=== PATIENT | male | born 1985 ===

== ENCOUNTER 2017-05-19 03:47 | Inpatient (IN) | payer BC, OTHER ==
[~2017-05-19] VITALS: Ht 167.6 cm; Wt 80.0 kg
[2017-05-19] VITALS (14 sets, daily range): BP systolic 127–143; BP diastolic 74–103; PULSE 52–104; RESP 16–21; TEMP 98.5; Ht 167.6 cm; Wt 80.0 kg
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
[2017-05-19] MEDS ORDERED: ASCO500S2 PO (04:53)
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
[2017-05-19] MEDS ORDERED: DIPHTH/TET/ACEL PERTUSS (ADULT) 0.5 ML VIAL IM* ONE (05:00)
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
[2017-05-19] MEDS ORDERED: ONDANSETRON 4 MG INJ IV PRN ×2 (05:30→06:00)
[2017-05-19] MEDS ORDERED: LIDOCAINE 1% (MDV) 20 ML INJ SC ONE (05:30)
[2017-05-19] MEDS ORDERED: ACETAMINOPHEN 325 MG TAB PO PRN (05:30)
[2017-05-19] MEDS: SOD CHLORIDE 0.9% 1,000 ML IV SCH ×4 (05:32→23:51)
--- NOTE | 2017-05-19 05:35 | RADRPT ---
PROCEDURE: Chest. CLINICAL INDICATION: Chest pain. TECHNIQUE: Single frontal view of the chest was obtained. COMPARISON: None. FINDINGS: The cardiac silhouette is within normal limits. The aortic arch is unremarkable. There is no focal consolidation, vascular congestion or pleural effusion. There is no pneumothorax. IMPRESSION: No evidence for active cardiopulmonary disease. .Jos Burns MD, MD Date Time Electronically viewed and signed by .Jos Burns MD, on 05/19/2017 05:35 .T/
[2017-05-19 05:39] LABS: BASOPHIL # 0.1 10^3/ul (0.0-0.1); BASOPHILS % 0.5 % (0.0-2.0); EOSINOPHILS % 0.1 % (0.0-7.0); HEMATOCRIT 48.9 % (42.0-52.0); LYMPHOCYTES # 0.8 10^3/ul (0.8-2.9); LYMPHOCYTES % 3.8 % (15.0-51.0); MEAN CORPUSCULAR HEMOGLOBIN 31.8 pg (29.0-33.0); MEAN CORPUSCULAR HGB CONC 34.8 g/dl (32.0-37.0); MEAN CORPUSCULAR VOLUME 91.6 fl (82.0-101.0); MEAN PLATELET VOLUME 9.8 fl (7.4-10.4); MONOCYTE # 1.4 10^3/ul (0.3-0.9); MONOCYTES % 7.2 % (0.0-11.0); NEUTROPHIL # 17.4 10^3/ul (1.6-7.5); NEUTROPHILS % 87.5 % (39.0-77.0); PLATELET COUNT 352 10^3/UL (140-415); RED BLOOD COUNT 5.34 10^6/ul (4.70-6.10); RED CELL DISTRIBUTION WIDTH 12.2 % (11.5-14.5); WHITE BLOOD COUNT 19.9 10^3/ul (4.8-10.8)
[2017-05-19] MEDS: PANTOPRAZOLE 40 MG INJ IV SCH (05:57)
[2017-05-19 05:58] LABS: CALCIUM 10.3 mg/dl (8.4-10.2); CREATININE 1.11 mg/dl (0.61-1.24); POTASSIUM 4.1 mmol/L (3.5-5.1)
[2017-05-19 06:00] LABS: INR 0.93; PROTIME 12.5 Sec (12.2-14.2)
[2017-05-19] MEDS ORDERED: DOCUSATE SODIUM 100 MG CAP PO PRN (06:00)
[2017-05-19 06:01] LABS: PARTIAL THROMBOPLASTIN TIME 25.9 Sec (25.0-35.0)
[2017-05-19] MEDS: morphine 2 MG INJ IV PRN ×2 (06:44→11:07)
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
[2017-05-19] MEDS: MULTIVITAMINS 10 ML, THIAMINE 100 MG, FOLIC ACID 1 MG in SOD CHLORIDE 0.9% 1,000 ML IVPB SCH (10:00)
--- NOTE | 2017-05-19 12:15 | RADRPT ---
PROCEDURE: CT Brain without contrast. CLINICAL INDICATION: Subarachnoid hemorrhage TECHNIQUE: Routine CT scan of the brain was performed on a high resolution multi detector scanner without intravenous contrast. One or more of the following dose reduction techniques were used: Auto mated exposure control; Adjustment of the mA and/or kV according to patient size; Use of iterative r econstruction technique. CTDI = 44 mGy. DLP = 720 mGy-cm. COMPARISON: CT brain 05/19/2017 FINDINGS: Hemorrhage: Trace right inferior frontal and temporal subarachnoid hemorrhages seen on the previous examination are less well visualized. No evidence of new or increased hemorrhage. Acute ischemic changes: No evidence of acute ischemic changes. Mass effect/Midline shift: None. Parenchymal volume: Within normal limits for age. Ventricular system: Concordant with parenchymal volume. Chronic changes: Parenchymal attenuation is within normal limits. Extracranial soft tissues: Mildly increased soft tissue swelling of the scalp with repair of left pa rietal laceration. Calvarium: No fractures. Paranasal sinuses: Visualized paranasal sinuses are clear. Mastoid air cells: Visualized mastoid air cells are clear. IMPRESSION: Trace right inferior frontal and temporal subarachnoid hemorrhages seen on the previous examination are less well visualized. No evidence of new or increased hemorrhage. RPTAT: AADD .Jose Dupree MD, MD Date Time Electronically viewed and signed by .Jose Dupree MD, MD on 05/19/2017 12:14 .B/
[2017-05-19 17:33] LABS: CK-MB 9.94 ng/ml (0.0-2.4); CREATINE KINASE 2310 IU/L (23-200); TROPONIN-I < 0.012 ng/ml (0.00-0.12)
[2017-05-20] MEDS: CEFTRIAXONE 1 GM/50 ML (PMX) 50 ML IVPB SCH ×2 (01:06→23:06)
[2017-05-20] MEDS: ACETAMINOPHEN 650MG/20.3ML CUP PO PRN ×2 (02:10→16:11)
[2017-05-20 04:22] LABS: ADD UMIC NO; UR ASCORBIC ACID NEGATIVE (NEGATIVE); UR BILIRUBIN (Dip) NEGATIVE (NEGATIVE); UR BLOOD (Dip) NEGATIVE (NEGATIVE); UR CLARITY CLEAR (CLEAR); UR COLOR YELLOW (YELLOW); UR GLUCOSE (Dip) NEGATIVE (NEGATIVE); UR KETONES (Dip) NEGATIVE (NEGATIVE); UR LEUKOCYTE ESTERASE (Dip) NEGATIVE Leu/ul (NEGATIVE); UR NITRITE (Dip) NEGATIVE (NEGATIVE); UR TOTAL PROTEIN (Dip) NEGATIVE (NEGATIVE); UR UROBILINOGEN (Dip) NEGATIVE (NEGATIVE)
[2017-05-20 04:58] LABS: BASOPHILS % 0.3 % (0.0-2.0); EOSINOPHILS % 0.1 % (0.0-7.0); HEMATOCRIT 39.8 % (42.0-52.0); HEMOGLOBIN 13.4 g/dl (14.0-18.0); LYMPHOCYTES # 1.3 10^3/ul (0.8-2.9); LYMPHOCYTES % 10.1 % (15.0-51.0); MEAN CORPUSCULAR HEMOGLOBIN 30.7 pg (29.0-33.0); MEAN CORPUSCULAR HGB CONC 33.7 g/dl (32.0-37.0); MEAN CORPUSCULAR VOLUME 91.3 fl (82.0-101.0); MEAN PLATELET VOLUME 10.1 fl (7.4-10.4); MONOCYTE # 1.1 10^3/ul (0.3-0.9); NEUTROPHIL # 10.1 10^3/ul (1.6-7.5); NEUTROPHILS % 80.1 % (39.0-77.0); PLATELET COUNT 285 10^3/UL (140-415); RED BLOOD COUNT 4.36 10^6/ul (4.70-6.10); RED CELL DISTRIBUTION WIDTH 12.8 % (11.5-14.5); WHITE BLOOD COUNT 12.6 10^3/ul (4.8-10.8)
[2017-05-20] MEDS: PANTOPRAZOLE 40 MG INJ IV SCH (05:09)
[2017-05-20 05:23] LABS: ALBUMIN 4.1 g/dl (3.3-4.9); ALBUMIN/GLOBULIN RATIO 1.64; BILIRUBIN,INDIRECT 0.4 mg/dl (0-1.1); BILIRUBIN,TOTAL 0.4 mg/dl (0.2-1.3); CALCIUM 9.2 mg/dl (8.4-10.2); CREATININE 0.94 mg/dl (0.61-1.24); POTASSIUM 3.8 mmol/L (3.5-5.1); TOTAL PROTEIN 6.6 g/dl (6.1-8.1)
[2017-05-20 07:26] VITALS: BP 125/66; RESP 16
[2017-05-20] MEDS: SOD CHLORIDE 0.9% 1,000 ML IV SCH ×3 (08:13→23:06)
[2017-05-20] MEDS: MULTIVITAMINS 10 ML, THIAMINE 100 MG, FOLIC ACID 1 MG in SOD CHLORIDE 0.9% 1,000 ML IVPB SCH (09:42)
[2017-05-20 15:40] VITALS: BP 123/76; RESP 18
[2017-05-20 19:10] VITALS: BP 146/80; RESP 20
[2017-05-21] MEDS: ACETAMINOPHEN 650MG/20.3ML CUP PO PRN ×2 (00:47→13:02)
[2017-05-21] MEDS: PANTOPRAZOLE 40 MG INJ IV SCH (05:22)
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
[2017-05-21 08:15] VITALS: BP 130/73; RESP 16
[2017-05-21 08:37] LABS: WHITE BLOOD COUNT 8.6 10^3/ul (4.8-10.8)
[2017-05-21 08:38] LABS: BASOPHIL # 0.1 10^3/ul (0.0-0.1); BASOPHILS % 0.6 % (0.0-2.0); EOSINOPHILS # 0.1 10^3/ul (0.0-0.5); EOSINOPHILS % 0.6 % (0.0-7.0); HEMATOCRIT 35.8 % (42.0-52.0); HEMOGLOBIN 12.5 g/dl (14.0-18.0); LYMPHOCYTES # 1.7 10^3/ul (0.8-2.9); LYMPHOCYTES % 19.8 % (15.0-51.0); MEAN CORPUSCULAR HGB CONC 34.9 g/dl (32.0-37.0); MEAN CORPUSCULAR VOLUME 91.6 fl (82.0-101.0); MEAN PLATELET VOLUME 10.1 fl (7.4-10.4); MONOCYTE # 0.7 10^3/ul (0.3-0.9); MONOCYTES % 8.4 % (0.0-11.0); NEUTROPHILS % 70.4 % (39.0-77.0); PLATELET COUNT 252 10^3/UL (140-415); RED BLOOD COUNT 3.91 10^6/ul (4.70-6.10); RED CELL DISTRIBUTION WIDTH 12.6 % (11.5-14.5)
[2017-05-21 08:59] LABS: ALBUMIN 3.8 g/dl (3.3-4.9); ALBUMIN/GLOBULIN RATIO 1.65; BILIRUBIN,INDIRECT 0.4 mg/dl (0-1.1); BILIRUBIN,TOTAL 0.4 mg/dl (0.2-1.3); CALCIUM 8.9 mg/dl (8.4-10.2); CREATININE 0.88 mg/dl (0.61-1.24); TOTAL PROTEIN 6.1 g/dl (6.1-8.1)
[2017-05-21] MEDS: MULTIVITAMINS 10 ML, THIAMINE 100 MG, FOLIC ACID 1 MG in SOD CHLORIDE 0.9% 1,000 ML IVPB SCH (08:59)
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
[2017-05-21] MEDS: SOD CHLORIDE 0.9% 1,000 ML IV SCH (10:53)
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
[2017-05-21] MEDS ORDERED: morphine 4 MG/ML VIAL IV PRN (14:30)
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
[2017-05-21 20:04] VITALS: BP 131/75; RESP 20
[2017-05-22] MEDS: CEFTRIAXONE 1 GM/50 ML (PMX) 50 ML IVPB SCH (00:20)
[2017-05-22] MEDS: SOD CHLORIDE 0.9% 1,000 ML IV SCH ×4 (00:20→22:31)
[2017-05-22] MEDS: ACETAMINOPHEN 650MG/20.3ML CUP PO PRN ×2 (00:23→10:39)
[2017-05-22 02:41] VITALS: BP 132/52; RESP 18
[2017-05-22] MEDS: PANTOPRAZOLE 40 MG INJ IV SCH (05:10)
[2017-05-22 05:14] LABS: BASOPHIL # 0.1 10^3/ul (0.0-0.1); BASOPHILS % 0.9 % (0.0-2.0); EOSINOPHILS # 0.1 10^3/ul (0.0-0.5); EOSINOPHILS % 0.8 % (0.0-7.0); HEMATOCRIT 35.2 % (42.0-52.0); HEMOGLOBIN 11.8 g/dl (14.0-18.0); LYMPHOCYTES # 2.2 10^3/ul (0.8-2.9); LYMPHOCYTES % 28.7 % (15.0-51.0); MEAN CORPUSCULAR HEMOGLOBIN 30.8 pg (29.0-33.0); MEAN CORPUSCULAR HGB CONC 33.5 g/dl (32.0-37.0); MEAN CORPUSCULAR VOLUME 91.9 fl (82.0-101.0); MEAN PLATELET VOLUME 10.1 fl (7.4-10.4); MONOCYTE # 0.6 10^3/ul (0.3-0.9); NEUTROPHIL # 4.6 10^3/ul (1.6-7.5); NEUTROPHILS % 61.3 % (39.0-77.0); PLATELET COUNT 246 10^3/UL (140-415); RED BLOOD COUNT 3.83 10^6/ul (4.70-6.10); RED CELL DISTRIBUTION WIDTH 12.7 % (11.5-14.5); WHITE BLOOD COUNT 7.5 10^3/ul (4.8-10.8)
[2017-05-22 05:45] LABS: CREATININE 0.84 mg/dl (0.61-1.24); MAGNESIUM 1.7 mg/dl (1.7-2.5); PHOSPHORUS 4.3 mg/dl (2.5-4.9); POTASSIUM 3.9 mmol/L (3.5-5.1)
[2017-05-22 08:08] VITALS: BP 127/68; RESP 16
[2017-05-22] MEDS: FOLIC ACID 1 MG TAB PO SCH (09:15)
[2017-05-22] MEDS: THIAMINE 100 MG TAB PO SCH (09:15)
[2017-05-22 15:26] VITALS: BP 130/70; RESP 16
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
[2017-05-22 20:10] VITALS: BP 137/86; RESP 20
[2017-05-23] MEDS: CEFTRIAXONE 1 GM/50 ML (PMX) 50 ML IVPB SCH (00:04)
[2017-05-23 02:04] VITALS: BP 123/61; RESP 19
[2017-05-23] MEDS: PANTOPRAZOLE 40 MG INJ IV SCH (05:16)
[2017-05-23 05:34] LABS: BASOPHIL # 0.1 10^3/ul (0.0-0.1); BASOPHILS % 0.8 % (0.0-2.0); EOSINOPHILS # 0.2 10^3/ul (0.0-0.5); EOSINOPHILS % 1.8 % (0.0-7.0); HEMATOCRIT 35.3 % (42.0-52.0); HEMOGLOBIN 12.1 g/dl (14.0-18.0); LYMPHOCYTES # 2.4 10^3/ul (0.8-2.9); MEAN CORPUSCULAR HEMOGLOBIN 31.3 pg (29.0-33.0); MEAN CORPUSCULAR HGB CONC 34.3 g/dl (32.0-37.0); MEAN CORPUSCULAR VOLUME 91.5 fl (82.0-101.0); MEAN PLATELET VOLUME 10.2 fl (7.4-10.4); MONOCYTE # 0.6 10^3/ul (0.3-0.9); MONOCYTES % 7.1 % (0.0-11.0); NEUTROPHIL # 5.6 10^3/ul (1.6-7.5); NEUTROPHILS % 63.1 % (39.0-77.0); PLATELET COUNT 264 10^3/UL (140-415); RED BLOOD COUNT 3.86 10^6/ul (4.70-6.10); RED CELL DISTRIBUTION WIDTH 12.4 % (11.5-14.5); WHITE BLOOD COUNT 8.9 10^3/ul (4.8-10.8)
[2017-05-23] MEDS: SOD CHLORIDE 0.9% 1,000 ML IV SCH ×3 (06:10→21:15)
[2017-05-23 06:27] LABS: CALCIUM 8.9 mg/dl (8.4-10.2); CREATININE 0.88 mg/dl (0.61-1.24); MAGNESIUM 1.6 mg/dl (1.7-2.5); PHOSPHORUS 4.2 mg/dl (2.5-4.9); POTASSIUM 3.6 mmol/L (3.5-5.1)
[2017-05-23 07:56] VITALS: BP 123/72; RESP 16
[2017-05-23] MEDS: THIAMINE 100 MG TAB PO SCH (08:25)
[2017-05-23] MEDS: ACETAMINOPHEN 650MG/20.3ML CUP PO PRN ×2 (08:25→18:09)
[2017-05-23] MEDS: FOLIC ACID 1 MG TAB PO SCH (08:25)
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
[2017-05-23 15:10] VITALS: BP 144/78; RESP 16
[2017-05-23 19:24] VITALS: BP 134/74; RESP 18
[2017-05-24] MEDS: SOD CHLORIDE 0.9% 1,000 ML IV SCH ×4 (02:37→12:13)
[2017-05-24 02:45] VITALS: BP 130/84; RESP 18
[2017-05-24] MEDS: ACETAMINOPHEN 650MG/20.3ML CUP PO PRN ×2 (05:15→15:27)
[2017-05-24] MEDS: PANTOPRAZOLE 40 MG INJ IV SCH (05:15)
[2017-05-24 05:52] LABS: CREATININE 0.84 mg/dl (0.61-1.24); MAGNESIUM 1.6 mg/dl (1.7-2.5); POTASSIUM 4.4 mmol/L (3.5-5.1)
[2017-05-24 07:39] VITALS: BP 121/66; RESP 20
[2017-05-24] MEDS: THIAMINE 100 MG TAB PO SCH (10:09)
[2017-05-24] MEDS: FOLIC ACID 1 MG TAB PO SCH (10:09)
--- NOTE | 2017-05-24 10:30 | PDOCDIS ---
Discharge Instructions CONDITION Patient Condition: Stable HOME CARE INSTRUCTIONS: Diet Instructions: RegularSpecial Diet: soft diet ACTIVITY: Activity Restrictions: Slowly Increase Activity Rest between Activity Avoid heavy lifting Avoid Heavy Housework Bathing Restrictions: Shower FOLLOW UP/APPOINTMENTS Follow-up Plan 1. Follow up with your primary care provider for ENT and neurology referral 2. With your primary doctor, repeat routine labs and CK levels 3. 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 No NSAIDS (advil, ibuprofen, naproxen, aleve) or aspirin due to risk of brain bleed. ART MILLER May 24, 2017 10:30
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
[2017-05-24 15:29] VITALS: BP 137/85; RESP 18
== END 2017-05-24 16:48 | disposition home or self-care (01) | DRG 84 ==
LOC: E/R 03:47 → ICU 05:06 → MS1 10:19
PROVIDERS: ADMIT Family Medicine; ATTEND Family Medicine
PROC: 0HQGXZZ Repair Left Hand Skin, External Approach (ICD-10-PCS; principal; 2017-05-19)
DX: S06.6X9A Traumatic subarachnoid hemorrhage with loss of consciousness of unspecified duration, initial encounter (principal); S02.92XA Unspecified fracture of facial bones, initial encounter for closed fracture; D72.829 Elevated white blood cell count, unspecified; S02.2XXA Fracture of nasal bones, initial encounter for closed fracture; F10.129 Alcohol abuse with intoxication, unspecified; S51.812A Laceration without foreign body of left forearm, initial encounter; Y04.2XXA Assault by strike against or bumped into by another person, initial encounter; R40.2412 Glasgow coma scale score 13-15, at arrival to emergency department; Y90.6 Blood alcohol level of 120-199 mg/100 ml; Y92.59 Other trade areas as the place of occurrence of the external cause
CPT/HCPCS: 36415; 70450; 70486; 71010; 73090; 80048; 80053; 80306; 81003; 82550; 82553; 83735; 84100; 84484; 85025; 85610; 85730; 87081; 90471; 90715; 92610; 96374; 96375; C9113; J0696; J2270; J2405; J3411; J7030